=== PATIENT | male | born 1975 | race Caucasian/White ===

== ENCOUNTER 2020-03-13 21:15 | Emergency (ER) | payer MEDICARE ==
[~2020-03-13] VITALS: Ht 177.8 cm; Wt 93.0 kg
[~2020-03-13 21:15] MED LIST: IBU800 MG PO; NORCO 5-325 TA1 EACH PO
[2020-03-13] MEDS ORDERED: EPIPEN 2-P0.3 MG/0.3 IJ (22:25)
== END 2020-03-13 22:47 | disposition home or self-care (01) ==
LOC: ED 21:15
DX: T78.3XXA Angioneurotic edema, initial encounter (principal); T78.1XXA Other adverse food reactions, not elsewhere classified, initial encounter; L50.9 Urticaria, unspecified; Z91.041 Radiographic dye allergy status; Z91.013 Allergy to seafood; Y92.89 Other specified places as the place of occurrence of the external cause

== ENCOUNTER 2020-03-25 00:17 | Emergency (ER) | payer MEDICARE ==
[~2020-03-25 00:17] MED LIST changes: +EPIPEN 2-P0.3 MG/0.3 IJ
[2020-03-25] MEDS ORDERED: AMLODIPINE BESY10 MG PO (00:33)
[2020-03-25] MEDS ORDERED: LOSARTAN POTASS50 M1 PO (00:33)
[2020-03-25] MEDS ORDERED: MELOXICAM15 MG PO (00:33)
== END 2020-03-25 00:53 | disposition home or self-care (01) ==
LOC: ED 00:17
DX: S00.05XA Superficial foreign body of scalp, initial encounter (principal); F17.200 Nicotine dependence, unspecified, uncomplicated; Z91.041 Radiographic dye allergy status; Z91.013 Allergy to seafood; Z79.899 Other long term (current) drug therapy; X58.XXXA Exposure to other specified factors, initial encounter; Y93.89 Activity, other specified; Y92.89 Other specified places as the place of occurrence of the external cause; Y99.8 Other external cause status

== ENCOUNTER 2021-02-11 17:10 | Emergency (ER) | payer MEDICARE ==
[~2021-02-11] VITALS: Ht 177.8 cm; Wt 90.7 kg
[~2021-02-11 17:10] MED LIST changes: +AMLODIPINE BESY10 MG PO; +LOSARTAN POTASS50 M1 PO; +MELOXICAM15 MG PO
[2021-02-11 17:30] LABS: BASO # 0.1 10*3/uL (0.0-0.1); BASO % 0.3 % (0.0-1.0); EOS # 0.1 10*3/uL (0.0-0.4); EOS % 0.5 % (1.0-4.0); HEMATOCRIT 44.6 % (42.0-52.0); LYMPH # 2.2 10*3/uL (1.3-4.4); LYMPH % 12.5 % (27.0-41.0); MEAN CELL VOLUME 92.1 fl (80.0-94.0); MEAN CORPUSCULAR HGB CONC 33.6 g/dl (33.0-37.0); MEAN PLATELET VOLUME 10.6 fl (9.6-12.3); MONO % 5.7 % (3.0-9.0); NEUT # 14.3 10*3/uL (2.3-7.9); NEUT % 80.7 % (47.0-73.0); PLATELET COUNT AUTOMATED 304 10*3/uL (130-400); RED BLOOD COUNT 4.84 10*6/uL (4.50-5.90); RED CELL DISTRI WIDTH 12.6 % (0-14.5); WHITE BLOOD COUNT 17.8 10*3/uL (4.8-10.8)
[2021-02-11 17:41] LABS: ACT PARTIAL THROMBO TIME 29.1 SECONDS (20.0-32.1)
[2021-02-11 17:50] LABS: ALBUMIN 4.4 gm/dl (3.1-4.5); ALKALINE PHOSPHATASE 71 U/L (45-117); BUN 18 mg/dl (7-24); CREATININE 0.86 mg/dL (0.70-1.30); SGOT/AST 19 IU/L (3-35); SGPT/ALT 59 U/L (12-78); TOTAL PROTEIN 8.1 gm/dL (6.4-8.2)
[2021-02-11 17:56] LABS: TROPONIN I < 0.015 ng/ml (<0.045)
[2021-02-11 18:03] LABS: CHLORIDE 101 mmol/L (98-107); POTASSIUM 3.4 mmol/L (3.5-5.1); SODIUM 138 mmol/L (136-145)
== END 2021-02-11 19:36 | disposition home or self-care (01) ==
LOC: ED 17:10
PROVIDERS: Emergency Medicine
DX: R10.13 Epigastric pain (principal); Z79.899 Other long term (current) drug therapy; Z91.041 Radiographic dye allergy status; Z91.013 Allergy to seafood

== ENCOUNTER → 2023-04-09 | Day surgery (SDC) | payer OTHER ==
[~2023-04-09] VITALS: Ht 177.8 cm; Wt 88.5 kg
[2023-04-09 08:54] VITALS: BP 140/86
[2023-04-09 09:52] VITALS: BP 111/92
[2023-04-09 10:05] VITALS: BP 113/81
[2023-04-09 10:22] VITALS: BP 125/86
== END ==
LOC: SDC 04-05 14:45
PROVIDERS: ATTEND Surgery
DX: K62.5 Hemorrhage of anus and rectum (principal); K21.9 Gastro-esophageal reflux disease without esophagitis; K31.9 Disease of stomach and duodenum, unspecified; K29.50 Unspecified chronic gastritis without bleeding; I10 Essential (primary) hypertension; B96.81 Helicobacter pylori [H. pylori] as the cause of diseases classified elsewhere; F17.210 Nicotine dependence, cigarettes, uncomplicated; Z98.890 Other specified postprocedural states

== ENCOUNTER 2023-05-21 23:24 | Emergency (ER) | payer OTHER ==
[~2023-05-21] VITALS: Ht 177.8 cm; Wt 86.2 kg
== END 2023-05-22 00:49 | disposition home or self-care (01) ==
LOC: ED 23:24
DX: K25.9 Gastric ulcer, unspecified as acute or chronic, without hemorrhage or perforation (principal); I10 Essential (primary) hypertension; Z91.041 Radiographic dye allergy status; Z91.013 Allergy to seafood; Z98.890 Other specified postprocedural states

== ENCOUNTER 2023-11-23 18:30 | Emergency (ER) | payer OTHER ==
[~2023-11-23] VITALS: Ht 175.2 cm; Wt 90.7 kg
[2023-11-23 18:55] LABS: BASO % 0.2 % (0.0-1.0); EOS # 0.1 10*3/uL (0.0-0.4); EOS % 0.6 % (1.0-4.0); HEMATOCRIT 41.7 % (42.0-52.0); LYMPH # 3.4 10*3/uL (1.3-4.4); LYMPH % 26.7 % (27.0-41.0); MEAN CELL VOLUME 95.4 fl (80.0-94.0); MEAN CORPUSCULAR HGB 31.6 pg (27.0-31.0); MEAN CORPUSCULAR HGB CONC 33.1 g/dl (33.0-37.0); MEAN PLATELET VOLUME 9.9 fl (9.6-12.3); MONO # 0.8 10*3/uL (0.1-1.0); MONO % 6.4 % (3.0-9.0); NEUT # 8.3 10*3/uL (2.3-7.9); NEUT % 65.6 % (47.0-73.0); PLATELET COUNT AUTOMATED 298 10*3/uL (130-400); RED BLOOD COUNT 4.37 10*6/uL (4.50-5.90); RED CELL DISTRI WIDTH 12.5 % (0-14.5); WHITE BLOOD COUNT 12.6 10*3/uL (4.8-10.8)
[2023-11-23 19:14] LABS: ACT PARTIAL THROMBO TIME 26.7 SECONDS (20.0-32.1)
[2023-11-23 19:16] LABS: ALKALINE PHOSPHATASE 61 U/L (46-116); BUN 16 mg/dl (9-23); CHLORIDE 105 mmol/L (98-107); POTASSIUM 3.4 mmol/L (3.4-5.1); SGPT/ALT 27 U/L (5-49); TOTAL PROTEIN 7.1 gm/dL (6.0-8.0)
== END 2023-11-23 19:12 | disposition left against medical advice (07) ==
LOC: ED 18:30
PROVIDERS: Nurse Practitioner
DX: R07.89 Other chest pain (principal); R51.9 Headache, unspecified; R11.0 Nausea; I10 Essential (primary) hypertension; Z91.041 Radiographic dye allergy status; Z91.013 Allergy to seafood; Z79.899 Other long term (current) drug therapy; Z53.29 Procedure and treatment not carried out because of patient's decision for other reasons

== ENCOUNTER 2024-06-14 08:59 | Emergency (ER) | payer OTHER ==
[~2024-06-14] VITALS: Ht 175.2 cm; Wt 90.7 kg
[2024-06-14] MEDS ORDERED: ESOMEPRAZOLE MA40 M1 PO (09:12)
[2024-06-14] MEDS ORDERED: IBU800 M1 PO (09:12)
[2024-06-14] MEDS ORDERED: MG-AL HYDROXIDE/SIMETICONE 30 ML UDC PO STA (09:30)
[2024-06-14] MEDS ORDERED: Lidocaine Hydrochloride 15 ML UDC PO STA (09:30)
[2024-06-14] MEDS ORDERED: Dicyclomine Hydrochloride 20 MG/10 ML OSYR PO STA (09:30)
== END 2024-06-14 09:41 | disposition home or self-care (01) ==
LOC: ED 08:59
DX: R10.13 Epigastric pain (principal); R11.10 Vomiting, unspecified; I10 Essential (primary) hypertension; Z91.041 Radiographic dye allergy status; Z91.013 Allergy to seafood; Z90.49 Acquired absence of other specified parts of digestive tract; Z98.890 Other specified postprocedural states